=== PATIENT | female | born 1945 | race Caucasian/White ===

== ENCOUNTER 2016-08-16 15:36 | Inpatient (IN) | payer OTHER, MEDICARE ==
[~2016-08-16] VITALS: Ht 165.1 cm; Wt 57.8 kg
[~2016-08-16 15:36] MED LIST: LORT5TAB PO; METH500T3 OR; SALS500T PO
[2016-08-16 15:48] VITALS: BP 143/91; PULSE 91; RESP 28; O2SAT 89
--- NOTE | 2016-08-16 16:03 | PD ---
HPI Chief Complaint: Cold / Flu Symptoms Time Seen by Provider: 16:03 Travel History International Travel<30 days: Yes Contact w/Intl Traveler<30days: Yes Name of Country Traveled to: [place] Traveled to known affect area: No History of Present Illness HPI 71-year-old female with history of PE presents to the ED for evaluation of 3 week history of nonproductive cough, congestion, sinus pressure, body aches. She presents today due to increasing shortness of breath, failure of symptoms to resolve. She endorses pleuritic chest pain. She denies chest pain, palpitations, diaphoresis. Endorses decreased appetite and mild nausea. Denies vomiting, changes in bowel habits, dysuria, back pain, edema of the lower extremities. She states her symptoms began after driving from [place]. She states her had similar symptoms. She was seen at a [facility], prescribed a Medrol Dosepak and Levaquin. She states this has not improved her symptoms. She was seen again, given 2 injections which she believes were steroids and antibiotics, again without improvement. She endorses distant history of smoking. PFSH Past Medical History Anxiety: Yes Cardiovascular Problems: Yes Gastrointestinal Disorders: Yes (ULCERATIVE COLITIS) GERD: Yes Respiratory: Yes (PULONARY EMBOLI 06/14/10) Thyroid Disease: Yes Menopausal: Yes Tubal Ligation: Yes Social History Alcohol Use: Yes (2X MONTH) Tobacco Use: No Substance Use: No Allergies-Medications (Allergen,Severity, Reaction): Coded Allergies: No Known Allergies (Unverified , 08/16/16) Reported Meds & Prescriptions Reported Meds & Active Scripts Active Reported Zantac (Ranitidine HCl) 150 Mg Tab 150 Mg PO DAILY Proair Hfa 8.5 GM Inh (Albuterol Sulfate) 90 Mcg/Act Aer 1 Puff INH Q4H PRN 108 mcg/actuation Levaquin (Levofloxacin) 500 Mg Tab 500 Mg PO DAILY Metoprolol Tartrate 50 Mg Tab 50 Mg PO DAILY Review of Systems Except as stated in HPI: all other systems reviewed are Neg Physical Exam Narrative GENERAL: Well-nourished, well-developed thin white female on 2 L O2 by nasal cannula in no acute distress.. SKIN: Warm and dry. HEAD: Normocephalic. EYES: No scleral icterus. No injection or drainage. NECK: Supple, trachea midline. No JVD or lymphadenopathy. CARDIOVASCULAR: Regular rate and rhythm without murmurs, gallops, or rubs. 2+ DP and radial pulses bilaterally. RESPIRATORY: Diffuse, coarse wheezing in all lung saldaña. No accessory muscle use. GASTROINTESTINAL: Abdomen soft, non-tender, nondistended. MUSCULOSKELETAL: No cyanosis, or edema. Homans sign negative bilaterally. BACK: Nontender without obvious deformity. No CVA tenderness. Data Data Last Documented VS Vital Signs Date Time Temp Pulse Resp B/P Pulse Ox O2 Delivery O2 Flow Rate FiO2 08/16/16 17:40 99.6 91 146/77 97 Nasal Cannula 4 08/16/16 17:04 22 Orders Complete Blood Count With Diff (08/16/16 16:09) Comprehensive Metabolic Panel (08/16/16 16:09) Act Partial Throm Time (Ptt) (08/16/16 16:09) Prothrombin Time / Inr (Pt) (08/16/16 16:09) Magnesium (Mg) (08/16/16 16:09) Urinalysis - C+S If Indicated (08/16/16 16:09) Blood Culture (08/16/16 16:09) Iv Access Insert/Monitor (08/16/16 16:09) Electrocardiogram (08/16/16 16:09) Oximetry (08/16/16 16:09) Oxygen Administration (08/16/16 16:09) Chest, Single Ap (08/16/16 16:09) Sodium Chloride 0.9% Flush (Ns Flush) (08/16/16 16:15) Methylprednisolone So Succ Inj (Solumedr (08/16/16 16:15) Albuterol-Ipratropium Neb (Duoneb Neb) (08/16/16 16:15) Sodium Chlorid 0.9% 500 Ml Inj (Ns 500 M (08/16/16 16:15) Troponin I (08/16/16 16:47) Ckmb (Isoenzyme) Profile (08/16/16 16:47) D-Dimer (08/16/16 16:52) Ct Pulmonary Angiogram (08/16/16 17:33) Influenzae A/B Antigen (08/16/16 17:44) Iohexol 350 Inj (Omnipaque 350 Inj) (08/16/16 18:11) CKMB (08/16/16 16:30) CKMB% (08/16/16 16:30) Labs Laboratory Tests Test 08/16/16 08/16/16 16:21 16:30 Urine Color YELLOW Urine Turbidity CLEAR Urine pH 5.5 Urine Specific [place] 1.015 Urine Protein NEG mg/dL Urine Glucose (UA) NEG mg/dL Urine Ketones TRACE mg/dL Urine Occult Blood MOD Urine Nitrite NEG Urine Bilirubin NEG Urine Urobilinogen LESS THAN 2.0 MG/DL Urine Leukocyte Esterase NEG Urine RBC 3 /hpf Urine WBC 1 /hpf Urine Squamous Epithelial <1 /hpf Cells Microscopic Urinalysis Comment CULT NOT INDICATED White Blood Count 6.3 TH/MM3 Red Blood Count 4.77 MIL/MM3 Hemoglobin 15.2 GM/DL Hematocrit 44.8 % Mean Corpuscular Volume 93.9 FL Mean Corpuscular Hemoglobin 31.9 PG Mean Corpuscular Hemoglobin 34.0 % Concent Red Cell Distribution Width 14.7 % Platelet Count 242 TH/MM3 Mean Platelet Volume 8.2 FL Neutrophils (%) (Auto) 61.9 % Lymphocytes (%) (Auto) 22.5 % Monocytes (%) (Auto) 14.7 % Eosinophils (%) (Auto) 0.5 % Basophils (%) (Auto) 0.4 % Neutrophils # (Auto) 3.9 TH/MM3 Lymphocytes # (Auto) 1.4 TH/MM3 Monocytes # (Auto) 0.9 TH/MM3 Eosinophils # (Auto) 0.0 TH/MM3 Basophils # (Auto) 0.0 TH/MM3 CBC Comment DIFF FINAL Differential Comment Prothrombin Time 10.5 SEC Prothromb Time International 1.0 RATIO Ratio Activated Partial 27.5 SEC Thromboplast Time Sodium Level 135 MEQ/L Potassium Level 3.9 MEQ/L Chloride Level 100 MEQ/L Carbon Dioxide Level 29.5 MEQ/L Anion Gap 6 MEQ/L Blood Urea Nitrogen 15 MG/DL Creatinine 0.73 MG/DL Estimat Glomerular Filtration 78 ML/MIN Rate Random Glucose 81 MG/DL Calcium Level 8.7 MG/DL Magnesium Level 2.0 MG/DL Total Bilirubin 0.4 MG/DL Aspartate Amino Transf 22 U/L (AST/SGOT) Alanine Aminotransferase 22 U/L (ALT/SGPT) Alkaline Phosphatase 71 U/L Total Creatine Kinase 324 U/L Creatine Kinase MB 1.2 NG/ML Creatine Kinase MB % 0.4 % Troponin I LESS THAN 0.02 NG/ML Total Protein 7.0 GM/DL Albumin 3.6 GM/DL MDM Medical Decision Making Medical Screen Exam Complete: Yes Emergency Medical Condition: Yes Differential Diagnosis Pneumonia versus bronchitis versus PE versus ACS versus other Narrative Course 71-year-old female with history of PE presents to the ED for evaluation of 3 week history of nonproductive cough, congestion, sinus pressure, body aches. She presents today due to increasing shortness of breath, failure of symptoms to resolve. She endorses pleuritic chest pain, decreased appetite, mild nausea. She denies palpitations, diaphoresis, vomiting, changes in bowel habits , dysuria, back pain, edema of the lower extremities. Seen at [facility], prescribed Medrol Dosepak, Levaquin without improvement of symptoms. Seen at [facility] again, given 2 injections which she believes her steroids and antibiotics, again without improvement. Endorses distant history of PE, distant smoking history. Vitals reviewed. Patient's O2 sat 89, respiratory rate 26 on presentation. 2 L was applied by nasal cannula which improved her saturations. On my exam the patient is in no acute distress, no extra work of breathing, speaking in complete sentences. There are diffuse coarse breath sounds in bilateral lung saldaña and a rolling cough. Abdominal exam benign. No swelling in the bilateral extremities. IV was established. Patient was administered IV steroids, DuoNeb 3. Lab work, imaging, EKG, half liter fluid bolus ordered. The patient will be moved to the medical pods. Please see oncoming provider note for disposition. Allison Avila Aug 16, 2016 16:03
[2016-08-16] MEDS ORDERED: SODIUM CHLORID 0.9% 500 ML INJ 500 ML IV ONE (16:15)
[2016-08-16] MEDS ORDERED: methylPREDNISolone SOD SUCC 125 MG/2 ML VIAL IVP ONE ×2 (16:15→19:30)
[2016-08-16] MEDS ORDERED: SODIUM CHLORIDE 0.9% FLUSH 5 ML FLUSH IVF PRN (16:15)
[2016-08-16] MEDS: RESP: ALBUTEROL 2.5 MG/IPRATROPIUM 0.5 MG NEB (SCH) INH (16:44)
[2016-08-16 16:51] VITALS: O2SAT 91
[2016-08-16 17:04] VITALS: BP 120/59; PULSE 85; RESP 22; O2SAT 91
[2016-08-16 17:19] LABS: AUTOMATED NEUTROPHIL # 3.9 TH/MM3 (1.8-7.7); BASOPHIL % 0.4 % (0.0-2.0); EOSINOPHIL % 0.5 % (0.0-4.0); HEMATOCRIT 44.8 % (35.0-46.0); HEMO FLAGS DIFF FINAL; LYMPH % 22.5 % (9.0-44.0); LYMPHOCYTE # 1.4 TH/MM3 (1.0-4.8); MEAN CELL VOLUME 93.9 FL (80.0-100.0); MEAN CORPUSCULAR HEMOGLOBIN 31.9 PG (27.0-34.0); MONO % 14.7 % (0.0-8.0); NEUT % 61.9 % (16.0-70.0); PLATELET COUNT 242 TH/MM3 (150-450); RED BLOOD COUNT 4.77 MIL/MM3 (4.00-5.30); RED CELL DISTRIBUTION WIDTH 14.7 % (11.6-17.2); WHITE BLOOD COUNT 6.3 TH/MM3 (4.0-11.0)
[2016-08-16 17:20] LABS: BLOOD, URINE MOD (NEG); COMMENT (UR) CULT NOT INDICATED; CULTURE IF INDICATED CULT NOT INDICATED; GLUCOSE,URINE NEG (NEG); KETONE, URINE TRACE mg/dL (NEG); NITRITE,URINE NEG (NEG); PH, URINE 5.5 (5.0-8.5); SQUAMOUS EPITHELIAL CELL URINE <1 /hpf (0-5); URINE COLOR YELLOW (YELLW/STRAW)
[2016-08-16 17:28] LABS: APTT (PATIENT) 27.5 SEC (24.3-30.1); PROTHROMBIN TIME - PATIENT 10.5 SEC (9.8-11.6)
[2016-08-16] MEDS ORDERED: LEVA500T PO (17:35)
[2016-08-16] MEDS ORDERED: ALBUAER3 INH (17:35)
[2016-08-16] MEDS ORDERED: METO50TA PO (17:35)
[2016-08-16] MEDS ORDERED: ZANT150T2 PO (17:35)
[2016-08-16 17:39] LABS: ALT (GPT) 22 U/L (10-53); ANION GAP 6 MEQ/L (5-15); AST (GOT) 22 U/L (15-37); BICARBONATE 29.5 MEQ/L (21.0-32.0); BLOOD UREA NITROGEN 15 MG/DL (7-18); CHLORIDE 100 MEQ/L (98-107); GLOMERULAR FILTRATION RATE 78 ML/MIN (>89); POTASSIUM 3.9 MEQ/L (3.5-5.1); SODIUM (NA) 135 MEQ/L (136-145)
[2016-08-16 17:40] VITALS: BP 146/77; PULSE 91; TEMP 99.6; O2SAT 97
[2016-08-16 17:41] LABS: ALKALINE PHOSPHATASE 71 U/L (45-117); TOTAL BILIRUBIN ADULT 0.4 MG/DL (0.2-1.0)
--- NOTE | 2016-08-16 17:44 | PD ---
Physical Exam Time Seen by Provider: 17:25 Data Data Last Documented VS Vital Signs Date Time Temp Pulse Resp B/P Pulse Ox O2 Delivery O2 Flow Rate FiO2 08/16/16 17:40 99.6 91 146/77 97 Nasal Cannula 4 08/16/16 17:04 22 Orders Complete Blood Count With Diff (08/16/16 16:09) Comprehensive Metabolic Panel (08/16/16 16:09) Act Partial Throm Time (Ptt) (08/16/16 16:09) Prothrombin Time / Inr (Pt) (08/16/16 16:09) Magnesium (Mg) (08/16/16 16:09) Urinalysis - C+S If Indicated (08/16/16 16:09) Blood Culture (08/16/16 16:09) Iv Access Insert/Monitor (08/16/16 16:09) Electrocardiogram (08/16/16 16:09) Oximetry (08/16/16 16:09) Oxygen Administration (08/16/16 16:09) Chest, Single Ap (08/16/16 16:09) Sodium Chloride 0.9% Flush (Ns Flush) (08/16/16 16:15) Methylprednisolone So Succ Inj (Solumedr (08/16/16 16:15) Albuterol-Ipratropium Neb (Duoneb Neb) (08/16/16 16:15) Sodium Chlorid 0.9% 500 Ml Inj (Ns 500 M (08/16/16 16:15) Troponin I (08/16/16 16:47) Ckmb (Isoenzyme) Profile (08/16/16 16:47) D-Dimer (08/16/16 16:52) Ct Pulmonary Angiogram (08/16/16 17:33) Influenzae A/B Antigen (08/16/16 17:44) Iohexol 350 Inj (Omnipaque 350 Inj) (08/16/16 18:11) CKMB (08/16/16 16:30) CKMB% (08/16/16 16:30) Methylprednisolone So Succ Inj (Solumedr (08/16/16 19:30) Azithromycin Inj (Zithromax Inj) (08/16/16 19:30) Ceftriaxone Inj (Rocephin Inj) (08/16/16 19:30) Methylprednisolone So Succ Inj (Solumedr (08/17/16 00:00) Guaifenesin Er (Mucinex Er) (08/16/16 21:00) Budeson-Formot 160-4.5 Mg Inh (Symbicort (08/16/16 21:00) Admit To Inpatient (08/16/16 ) Vital Signs (Adult) Q4H (08/16/16 19:24) Activity Oob With Assistance (08/16/16 19:24) Industrial Conveyor Belt Repairer / Telemetry .CONTINUOUS (08/16/16 19:24) Diet Regular Basic (08/17/16 Breakfast) Sodium Chlor 0.9% 1000 Ml Inj (Ns 1000 M (08/16/16 19:30) Sodium Chloride 0.9% Flush (Ns Flush) (08/16/16 19:30) Sodium Chloride 0.9% Flush (Ns Flush) (08/16/16 21:00) Ondansetron Inj (Zofran Inj) (08/16/16 19:30) Bisacodyl Supp (Dulcolax Supp) (08/16/16 19:30) Comprehensive Metabolic Panel (08/17/16 06:00) Complete Blood Count With Diff (08/17/16 06:00) Scd Bilateral/Knee High IKE.BID (08/16/16 19:24) Nabil Bilateral/Knee High IKE.QSHIFT (08/16/16 19:24) Acetaminophen (Tylenol) (08/16/16 19:30) Acetamin-Hydrocod 325-5 Mg ([place] 5-325 (08/16/16 19:30) Acetamin-Hydrocod 325-10 Mg ([place] 10-32 (08/16/16 19:30) Inpatient Certification (08/16/16 ) Troponin I (08/17/16 00:00) Troponin I (08/17/16 06:00) Creatine Kinase (Cpk) (08/17/16 00:00) Creatine Kinase (Cpk) (08/17/16 06:00) Metoprolol Tartrate (Lopressor) (08/17/16 09:00) Admit Order (Ed Use Only) (08/16/16 19:30) Labs Laboratory Tests Test 08/16/16 08/16/16 16:21 16:30 Urine Color YELLOW Urine Turbidity CLEAR Urine pH 5.5 Urine Specific [place] 1.015 Urine Protein NEG mg/dL Urine Glucose (UA) NEG mg/dL Urine Ketones TRACE mg/dL Urine Occult Blood MOD Urine Nitrite NEG Urine Bilirubin NEG Urine Urobilinogen LESS THAN 2.0 MG/DL Urine Leukocyte Esterase NEG Urine RBC 3 /hpf Urine WBC 1 /hpf Urine Squamous Epithelial <1 /hpf Cells Microscopic Urinalysis Comment CULT NOT INDICATED White Blood Count 6.3 TH/MM3 Red Blood Count 4.77 MIL/MM3 Hemoglobin 15.2 GM/DL Hematocrit 44.8 % Mean Corpuscular Volume 93.9 FL Mean Corpuscular Hemoglobin 31.9 PG Mean Corpuscular Hemoglobin 34.0 % Concent Red Cell Distribution Width 14.7 % Platelet Count 242 TH/MM3 Mean Platelet Volume 8.2 FL Neutrophils (%) (Auto) 61.9 % Lymphocytes (%) (Auto) 22.5 % Monocytes (%) (Auto) 14.7 % Eosinophils (%) (Auto) 0.5 % Basophils (%) (Auto) 0.4 % Neutrophils # (Auto) 3.9 TH/MM3 Lymphocytes # (Auto) 1.4 TH/MM3 Monocytes # (Auto) 0.9 TH/MM3 Eosinophils # (Auto) 0.0 TH/MM3 Basophils # (Auto) 0.0 TH/MM3 CBC Comment DIFF FINAL Differential Comment Prothrombin Time 10.5 SEC Prothromb Time International 1.0 RATIO Ratio Activated Partial 27.5 SEC Thromboplast Time Sodium Level 135 MEQ/L Potassium Level 3.9 MEQ/L Chloride Level 100 MEQ/L Carbon Dioxide Level 29.5 MEQ/L Anion Gap 6 MEQ/L Blood Urea Nitrogen 15 MG/DL Creatinine 0.73 MG/DL Estimat Glomerular Filtration 78 ML/MIN Rate Random Glucose 81 MG/DL Calcium Level 8.7 MG/DL Magnesium Level 2.0 MG/DL Total Bilirubin 0.4 MG/DL Aspartate Amino Transf 22 U/L (AST/SGOT) Alanine Aminotransferase 22 U/L (ALT/SGPT) Alkaline Phosphatase 71 U/L Total Creatine Kinase 324 U/L Creatine Kinase MB 1.2 NG/ML Creatine Kinase MB % 0.4 % Troponin I LESS THAN 0.02 NG/ML Total Protein 7.0 GM/DL Albumin 3.6 GM/DL [facility] Medical Record Reviewed: Yes Supervised Visit with CHIKA: No Interpretation(s) CT pulmonary angiogram reveals no PE, hepatomegaly, right lung hazy opacity most likely inflammatory, right lower lobe nodule. Narrative Course Please see previous provider's notes for complete history of present illness. In summary this is a 71-year-old female who has had dyspnea, cough since approximately August 04. The cough is productive with clear sputum. She's been having some dyspnea, some sharp chest pain and upper back pain that is reproduced with coughing. She does note that symptoms started while she was on a cruise in the [facility] last week. She denies calf swelling or leg pain. She reports her temperature has been as high as 99.9. She was seen twice in urgent care center in the past week and prescribed Medrol Dosepak which she has completed as well as a ten-day course of Levaquin which she is on day 7 of. She is seen worsening of her symptoms which prompted evaluation. On examination she does have a dry cough, slight wheezing bilaterally. There is no lower extremity edema with a negative Homans. Her initial vital signs are recorded as a pulse oximetry of 89% on room air with a respiratory rate of 28, heart rate of 91. She does report a remote history of pulmonary embolism in 2004, unprovoked, for which she was on 1 year of Coumadin. Therefore CT pulmonary angiogram has been added on to the previous tests. In addition an influenza antigen test has been ordered. The patient's lab work and imaging studies have been reviewed and found to be reassuring. She does have a right lower lobe nodule which she is already aware of and is being monitored as an outpatient. She does have a right lung hazy opacity most likely inflammatory, no PE. Upon reexamination she does feel slightly better after the administration of DuoNeb's. Upon standing on room air the patient's pulse oximetry remained at 88%. Goes up to 92% while lying down on 4 L of oxygen. Therefore the patient will be admitted for evaluation. The patient will be given a dose of IV Solu-Medrol, Rocephin and azithromycin. The patient was discussed with Dr. Wolf who is agreeable. Diagnosis Primary Impression: Hypoxia Admitting Information Admitting Physician Requests: Admit Danny Lord Aug 16, 2016 17:43
--- NOTE | 2016-08-16 17:44 | RADRPT ---
EXAM DATE/TIME: 08/16/2016 16:36 [facility] COMPARISON: No previous studies available for comparison. INDICATIONS : Shortness of breath, congestion starting today MEDICAL HISTORY : None. SURGICAL HISTORY : None. ENCOUNTER: Initial ACUITY: 1 day PAIN SCORE: 0/10 LOCATION: Bilateral chest FINDINGS: Single AP view of the chest. The lungs are clear. Tortuous thoracic aorta. Cardiac silhouette within normal limits.. No evidence of pleural effusion or pneumothorax. CONCLUSION: No acute cardiopulmonary disease identified. Ketan Colby MD on August 16, 2016 at 17:41 Board Certified Radiologist. This report was verified electronically.
[2016-08-16] MEDS ORDERED: IOHEXOL 350 MG/ML 10 ML VIAL (for RAD DIAG) IV ONE (18:11)
[2016-08-16 18:35] LABS: CREATINE KINASE 324 U/L (26-192)
[2016-08-16 18:50] LABS: CKMB 1.2 NG/ML (0.5-3.6)
--- NOTE | 2016-08-16 18:51 | RADRPT ---
EXAM DATE/TIME: 08/16/2016 18:23 [facility] COMPARISON: No previous studies available for comparison. INDICATIONS : Chest pain and shortness of breath. IV CONTRAST: 75 cc Omnipaque 350 (iohexol) IV RADIATION DOSE: 22.68 CTDIvol (mGy) MEDICAL HISTORY : Cardiovascular disease. Pulmonary embolism. SURGICAL HISTORY : None. ENCOUNTER: Initial ACUITY: 1 day PAIN SCALE: 4/10 LOCATION: Bilateral chest TECHNIQUE: Volumetric scanning of the chest was performed using a pulmonary embolism protocol MIP images were re constructed. Using automated exposure control and adjustment of the mA and/or kV according to patien t size, radiation dose was kept as low as reasonably achievable to obtain optimal diagnostic quality images. FINDINGS: There is no evidence for PE for technique.The liver appears enlarged measuring 19.2 cm in oblique hafsa meter. There is no pleural effusion. There is a small 4-5 mm nodule in the right lower lobe laterall y. There is hazy opacity in the right upper lobe anteromedially parts of the right middle lobe most l ikely inflammatory. No appreciable pathological adenopathy is seen within the mediastinum. CONCLUSION: 1. There is no evidence for PE for technique. 2. Hepatomegaly. 3. Right lung hazy opacity most likely inflammatory. 4. Right lower lobe nodule, repeat noncontrast chest CT is suggested in 6 months as a conservative fo llow up. Lorna Moreno MD on August 16, 2016 at 18:46 Board Certified Radiologist. This report was verified electronically.
[2016-08-16] MEDS ORDERED: ACETAMINOPHEN/HYDROcodone 325 MG/5 MG TAB PO PRN (19:30)
[2016-08-16] MEDS ORDERED: SODIUM CHLORIDE 0.9% FLUSH 5 ML FLUSH FLUSH PRN (19:30)
[2016-08-16] MEDS ORDERED: BISACODYL 10 MG SUPP PR PRN (19:30)
[2016-08-16] MEDS ORDERED: ACETAMINOPHEN 325 MG TAB PO PRN (19:30)
[2016-08-16] MEDS ORDERED: SODIUM CHLOR 0.9% 1000 ML INJ 1,000 ML IV ONE (19:30)
[2016-08-16] MEDS ORDERED: ONDANSETRON HCL 4 MG/2 ML VIAL IVP PRN (19:30)
[2016-08-16] MEDS ORDERED: cefTRIAXone INJ 1,000 MG in SODIUM CHLORIDE 0.9% INJ 100 ML IV ONE (19:30)
[2016-08-16] MEDS ORDERED: AZITHROMYCIN INJ 500 MG in SODIUM CHLOR 0.9% 250 ML INJ 250 ML IV ONE (19:30)
--- NOTE | 2016-08-16 19:33 | HHI.HP ---
[facility] Service [facility] Primary Care Physician Valente Sweeney MD Admission Diagnosis Hypoxia Diagnoses: (1) SIRS (systemic inflammatory response syndrome) Diagnosis: Principal (2) Bronchitis Diagnosis: Principal (3) Hypoxia Diagnosis: Principal (4) Chest pain Diagnosis: Principal (5) HTN (hypertension) Diagnosis: Principal Travel History International Travel<30 Days: Yes Contact w/Intl Traveler <30 Da: Yes Name of Country Traveled to: [place] Traveled to Known Affected Are: No Sepsis Criteria SIRS Criteria (2 or more): Heart rate over 90, RR > 20 or PaCO2 < 32 History of Present Illness This is a 71-year-old female with a PMH of HTN, Ulcerative Colitis and h/o PE who came to the ER w/ complaints of chest pain, SOB and non-productive cough x3 wks. States symptoms started when she returned from a cruise to the [facility] on 08/08/16, states had similar symptoms, was treated w/ antibiotics and he improved, however she did not. Seen at Urgent Care 08/10/16 and prescribed Medrol Dosepak and Levaquin without significant improvement. Presented to Urgent Care a second time this past Friday and was given IM steroid/ antibiotic injections and instructed to continue w/ Levaquin. Came to ER today w/ ongoing symptoms. On arrival, BP 143/91, HR 91, O2 sat 89% on RA, RR 28, Temp 99.6. CBC unremarkable. Chemistry essentially unremarkable except for GFR 78. CPK 324. Troponin negative. UA negative. CXR with no acute findings. CTA Pulm w/ no PE, right lung opacity, likely inflammatory, RLL nodule w/ recommendation for repeat CT Chest in 6 months-pt aware of nodule, states PCP Dr. Sweeney is aware as well. On exam, pt noted to have wheezing. S/p Solu-Medrol and DuoNeb in ER w/ some improvement, however persistent hypoxia w/ ambulation, O2 sat 89%. Influenza negative. S/p Blood Cultures, Rocephin/Zithro in ER. Review of Systems Other ROS: 14 point review of systems otherwise negative. Past Family Social History Past Medical History PMH: HTN, Ulcerative Colitis and h/o PE Past Surgical History PAST SURGICAL HISTORY: Tubal Ligation Allergies: Coded Allergies: No Known Allergies (Unverified , 08/16/16) Family History PAST FAMILY HISTORY: Reviewed. No h/o DM or CAD Social History PAST SOCIAL HISTORY: Negative for alcohol, tobacco or drugs. Physical Exam Vital Signs Vital Signs Date Time Temp Pulse Resp B/P Pulse Ox O2 Delivery O2 Flow Rate FiO2 08/16/16 17:40 99.6 91 146/77 97 Nasal Cannula 4 08/16/16 17:04 85 22 120/59 91 Nasal Cannula 2 08/16/16 16:51 91 Nasal Cannula 2 08/16/16 16:51 91 Nasal Cannula 2 08/16/16 15:48 91 28 143/91 89 Physical Exam PE: GENERAL: Elderly female in no acute distress. HEENT: PERRLA, EOMI. No scleral icterus or conjunctival pallor. No lid lag or facial droop. CARDIOVASCULAR: Regular rate and rhythm. No obvious murmurs to auscultation. No chest tenderness to palpation. RESPIRATORY: No obvious rhonchi. Occasional wheezing. Clear to auscultation. Breath sounds equal bilaterally. GASTROINTESTINAL: Abdomen soft, non-tender, nondistended. BS normal. MUSCULOSKELETAL: Extremities without clubbing, cyanosis, or edema. No obvious deformities. NEUROLOGICAL: Awake, alert and oriented x4. No focal neurologic deficits. Moving both upper and lower extremities spontaneously. Laboratory Laboratory Tests Test 08/16/16 08/16/16 16:21 16:30 Urine Color YELLOW Urine Turbidity CLEAR Urine pH 5.5 Urine Specific [place] 1.015 Urine Protein NEG Urine Glucose (UA) NEG Urine Ketones TRACE Urine Occult Blood MOD Urine Nitrite NEG Urine Bilirubin NEG Urine Urobilinogen LESS THAN 2.0 Urine Leukocyte Esterase NEG Urine RBC 3 Urine WBC 1 Urine Squamous Epithelial <1 Cells Microscopic Urinalysis Comment CULT NOT INDICATED White Blood Count 6.3 Red Blood Count 4.77 Hemoglobin 15.2 Hematocrit 44.8 Mean Corpuscular Volume 93.9 Mean Corpuscular Hemoglobin 31.9 Mean Corpuscular Hemoglobin 34.0 Concent Red Cell Distribution Width 14.7 Platelet Count 242 Mean Platelet Volume 8.2 Neutrophils (%) (Auto) 61.9 Lymphocytes (%) (Auto) 22.5 Monocytes (%) (Auto) 14.7 Eosinophils (%) (Auto) 0.5 Basophils (%) (Auto) 0.4 Neutrophils # (Auto) 3.9 Lymphocytes # (Auto) 1.4 Monocytes # (Auto) 0.9 Eosinophils # (Auto) 0.0 Basophils # (Auto) 0.0 CBC Comment DIFF FINAL Differential Comment Prothrombin Time 10.5 Prothromb Time International 1.0 Ratio Activated Partial 27.5 Thromboplast Time Sodium Level 135 Potassium Level 3.9 Chloride Level 100 Carbon Dioxide Level 29.5 Anion Gap 6 Blood Urea Nitrogen 15 Creatinine 0.73 Estimat Glomerular Filtration 78 Rate Random Glucose 81 Calcium Level 8.7 Magnesium Level 2.0 Total Bilirubin 0.4 Aspartate Amino Transf 22 (AST/SGOT) Alanine Aminotransferase 22 (ALT/SGPT) Alkaline Phosphatase 71 Total Creatine Kinase 324 Creatine Kinase MB 1.2 Creatine Kinase MB % 0.4 Troponin I LESS THAN 0.02 Total Protein 7.0 Albumin 3.6 Date/Time Procedure Status Source Growth 08/16/16 17:51 Influenza Types A,B Antigen (LAUREN) - Final Complete Nasal Aspirate NEGATIVE FOR FLU A AND B ANTIGEN.... 08/16/16 16:29 Aerobic Blood Culture Received Blood Line Pending 08/16/16 16:29 Anaerobic Blood Culture Received Blood Line Pending Result Diagram: 08/16/16 1630 08/16/16 1630 Assessment and Plan Problem List: (1) SIRS (systemic inflammatory response syndrome) ICD Code: R65.10 Status: Acute (2) Bronchitis ICD Code: J40 Status: Acute (3) Hypoxia ICD Code: R09.02 Status: Acute (4) Chest pain ICD Code: R07.9 Status: Acute (5) HTN (hypertension) ICD Code: I10 Status: Acute Assessment and Plan A/P: 1. SIRS: Temp 99.6, HR 91, RR 22-28, Source-presumably PNA w/ failed outpatient therapy. Influenza negative, S/p Blood Cultures, IV Rocephin/ Zithro. Follow up cultures, continue IV Abx. 2. Bronchitis: CXR w/ no acute findings, CTA Pulm negative for PE, right lung hazy opacity likely inflammatory, RLL nodule w/ recommendation for repeat CT in 6 months, images reviewed by me. +wheezing on exam, s/p Solu-Medrol and DuoNeb w/ some improvement. Continue Solu-Medrol, DuoNeb, Symbicort, Mucinex. IV Abx as above for possible atypical PNA. Pulm consult if no improvement. 3. Hypoxia: O2 sat on arrival 89% on RA, s/p improvement after treatment w/ O2 sat 97% on 4L NC, however recurrent hypoxia w/ ambulation. Will monitor closely. Ambulating O2 once clinically improved. 4. Chest Pain: associated w/ cough. Unlikely cardiac, however will r/o ACS. Initial trop negative, EKG w/ no acute ischemia. Start ASA, Statin, resume home Metoprolol. 5. HTN: Controlled. BP 140's systolic, resume home Metoprolol. Monitor BP. 6. DVT Prophylaxis: SCD/Teds. 7. Social work for d/c planning as needed. 8. Case discussed w/ ER physician at length. Physician Certification 2 Midnight Certification Type: Admission for Inpatient Services Order for Inpatient Services The services are ordered in accordance with Medicare regulations or non- Medicare payer requirements, as applicable. In the case of services not specified as inpatient-only, they are appropriately provided as inpatient services in accordance with the 2-midnight benchmark. Estimated LOS (days): 2 days is the estimated time the patient will need to remain in the hospital, assuming treatment plan goals are met and no additional complications. Post-Hospital Plan: Not yet determined Mey Wolf MD Aug 16, 2016 19:33
[2016-08-16] MEDS ORDERED: RESP: ALBUTEROL 2.5 MG/IPRATROPIUM 0.5 MG NEB (PRN) NEB (20:00)
[2016-08-16] MEDS: SODIUM CHLORIDE 0.9% FLUSH 5 ML FLUSH FLUSH SCH (21:00)
[2016-08-16] MEDS: guaiFENesin E.R. 600 MG TAB PO SCH (23:12)
[2016-08-16] MEDS: BUDESONIDE-FORMOTEROL 160/4.5 MCG INHALER INH SCH (23:12)
[2016-08-17] VITALS (10 sets, daily range): BP systolic 152–181; BP diastolic 71–88; PULSE 69–87; RESP 16–20; TEMP 97.4–98.9; O2SAT 91–97
[2016-08-17 00:44] LABS: CREATINE KINASE 196 U/L (26-192)
[2016-08-17 00:56] LABS: CKMB 0.6 NG/ML (0.5-3.6)
[2016-08-17 05:41] LABS: AUTOMATED NEUTROPHIL # 3.2 TH/MM3 (1.8-7.7); BASOPHIL % 0.2 % (0.0-2.0); HEMATOCRIT 41.7 % (35.0-46.0); HEMO FLAGS DIFF FINAL; LYMPH % 10.4 % (9.0-44.0); LYMPHOCYTE # 0.4 TH/MM3 (1.0-4.8); MEAN CELL VOLUME 93.1 FL (80.0-100.0); MEAN CORPUSCULAR HEMOGLOBIN 31.4 PG (27.0-34.0); MEAN CORPUSCULAR HGB CONC 33.8 % (32.0-36.0); MONO % 2.8 % (0.0-8.0); NEUT % 86.6 % (16.0-70.0); PLATELET COUNT 235 TH/MM3 (150-450); RED BLOOD COUNT 4.48 MIL/MM3 (4.00-5.30); RED CELL DISTRIBUTION WIDTH 14.7 % (11.6-17.2); WHITE BLOOD COUNT 3.7 TH/MM3 (4.0-11.0)
[2016-08-17 06:15] LABS: ALKALINE PHOSPHATASE 62 U/L (45-117); ALT (GPT) 18 U/L (10-53); ANION GAP 5 MEQ/L (5-15); AST (GOT) 12 U/L (15-37); BICARBONATE 27.4 MEQ/L (21.0-32.0); BLOOD UREA NITROGEN 13 MG/DL (7-18); CHLORIDE 106 MEQ/L (98-107); CREATINE KINASE 155 U/L (26-192); GLOMERULAR FILTRATION RATE 90 ML/MIN (>89); POTASSIUM 4.6 MEQ/L (3.5-5.1); SODIUM (NA) 138 MEQ/L (136-145); TOTAL BILIRUBIN ADULT 0.2 MG/DL (0.2-1.0)
[2016-08-17] MEDS ORDERED: cloNIDine HCL 0.1 MG TAB PO PRN (07:30)
[2016-08-17] MEDS: guaiFENesin E.R. 600 MG TAB PO SCH ×2 (08:37→21:53)
[2016-08-17] MEDS: ASPIRIN EC 81 MG TABEC PO SCH (08:37)
[2016-08-17] MEDS: methylPREDNISolone SOD SUCC 40 MG/1 ML VIAL IV PUSH SCH ×4 (08:38→17:55)
[2016-08-17] MEDS: SODIUM CHLORIDE 0.9% FLUSH 5 ML FLUSH FLUSH SCH ×2 (08:38→21:00)
[2016-08-17] MEDS: PRAVASTATIN SOD 40 MG TAB PO SCH ×2 (08:38→08:51)
[2016-08-17] MEDS: BUDESONIDE-FORMOTEROL 160/4.5 MCG INHALER INH SCH ×2 (08:39→21:53)
[2016-08-17] MEDS ORDERED: METOPROLOL TARTRATE 50 MG TAB PO SCH (09:00)
[2016-08-17] MEDS: SODIUM CHLOR 0.9% 1000 ML INJ 1,000 ML IV SCH (11:00)
--- NOTE | 2016-08-17 11:05 | HHI.PR ---
Subjective Remarks Follow-up for pneumonia. The patient had shortness of breath, cough, and back pain. She had been on oral Levaquin and Medrol Dosepak as outpatient, with little improvement. She smoked in college, none since. She states her PCP did breathing test last year, denies any COPD. She does state that she was told that she has asthma. She says that she's been told she has a lung nodule before , and it is being observed. Objective Vitals Vital Signs Date Time Temp Pulse Resp B/P Pulse Ox O2 Delivery O2 Flow Rate FiO2 08/17/16 08:04 08/17/16 07:51 97.7 77 18 155/81 92 08/17/16 04:31 69 08/17/16 03:46 98.3 76 20 177/79 95 08/17/16 03:15 80 16 152/71 97 Nasal Cannula 4 08/16/16 17:40 99.6 91 146/77 97 Nasal Cannula 4 08/16/16 17:04 85 22 120/59 91 Nasal Cannula 2 08/16/16 16:51 91 Nasal Cannula 2 08/16/16 16:51 91 Nasal Cannula 2 08/16/16 15:48 91 28 143/91 89 I/O 08/16/16 08/16/16 08/16/16 08/17/16 08/17/16 08/17/16 07:00 15:00 23:00 07:00 15:00 23:00 Intake Total 100 ml Balance 100 ml Intake IV Total 100 ml # Voids 1 Result Diagram: 08/17/16 0522 08/17/[address] Angiography 08/16/16 1733 Signed Impressions: Service Date/Time: Tuesday, August 16, 2016 18:23 - CONCLUSION: 1. There is no evidence for PE for technique. 2. Hepatomegaly. 3. Right lung hazy opacity most likely inflammatory. 4. Right lower lobe nodule, repeat noncontrast chest CT is suggested in 6 months as a conservative follow up. Lorna Moreno MD Chest X-Ray 08/16/16 0970 Signed Impressions: Service Date/Time: Tuesday, August 16, 2016 16:36 - CONCLUSION: No acute cardiopulmonary disease identified. Ketan Colby MD Objective Remarks GENERAL: Well-developed well-nourished. In no acute distress. SKIN: Warm and dry. No lesions noted. HEENT: Normocephalic. Pupils equal and round. Mucous membranes pink and moist. CARDIOVASCULAR: Regular rate and rhythm. No murmur appreciated. RESPIRATORY: No accessory muscle use. Expiratory wheezing bilaterally. GASTROINTESTINAL: Abdomen soft, non-tender, nondistended. Bowel sounds x4. MUSCULOSKELETAL: No obvious deformities. No clubbing or cyanosis. No edema. NEUROLOGICAL: Awake and alert. No focal neurological deficits. Moves upper and lower extremities spontaneously. Normal speech. PSYCHIATRIC: Appropriate mood and affect; insight and judgment normal. A/P Problem List: (1) SIRS (systemic inflammatory response syndrome) ICD Code: R65.10 Status: Acute (2) Bronchitis ICD Code: J40 Status: Acute (3) Hypoxia ICD Code: R09.02 Status: Acute (4) Chest pain ICD Code: R07.9 Status: Acute (5) HTN (hypertension) ICD Code: I10 Status: Acute Assessment and Plan 71-year-old female with a PMH of HTN, Ulcerative Colitis and h/o PE who came to the ER w/ complaints of chest pain, SOB and non-productive cough x3 wks Sepsis: Temp 99.6, HR 91, RR 22-28, leukopenia 3.7. Source pneumonia as below. Influenza negative. Blood cultures with NGTD. Continue IV azithromycin and ceftriaxone. Check sputum culture and urinary antigens. Pneumonia and asthma exacerbation: Failed outpatient therapy. Pulmonary angiogram reviewed, negative for PE, however shows right lung hazy opacity likely inflammatory, RLL nodule(chronic per patient, continue outpatient monitoring). Presented with hypoxia and wheezing. Continue IV steroids. Scheduled and as needed nebs. Symbicort, Mucinex. Continue antibiotics as above. Chest Pain: Atypical, associated w/ cough. ACS ruled out per protocol with serial cardiac enzymes negative 3. Continue ASA, Statin, home Metoprolol. HTN: Reasonably Controlled. Continue home Metoprolol. Clonidine as needed. Monitor BP. DVT Prophylaxis: SCD/Teds. GI prophylaxis: Zantac Written by Rex Worthy, acting as scribe for Dr. Lazaro on 08/17/16 at 11:04. Discharge Planning Disposition pending clinical improvement. Attending Statement The documentation accurately reflects the work performed [id number] by me on at 11:04. Rex Worthy Aug 17, 2016 11:05 Edgar Rollins MD Aug 20, 2016 14:07
[2016-08-17] MEDS: FAMOTIDINE 20 MG TAB PO SCH ×2 (11:30→21:53)
[2016-08-17] MEDS: RESP: ALBUTEROL 2.5 MG/IPRATROPIUM 0.5 MG NEB (SCH) NEB ×2 (15:55→19:34)
[2016-08-17] MEDS: AZITHROMYCIN INJ 500 MG in SODIUM CHLOR 0.9% 250 ML INJ 250 ML IV SCH (20:29)
[2016-08-17] MEDS: METOPROLOL TARTRATE 50 MG TAB PO SCH (21:53)
[2016-08-17] MEDS: cefTRIAXone INJ 1,000 MG in SODIUM CHLORIDE 0.9% INJ 100 ML IV SCH (21:54)
[2016-08-17] MEDS: ACETAMINOPHEN/HYDROcodone 325 MG/10 MG TAB PO PRN (21:59)
[2016-08-18] VITALS (12 sets, daily range): BP systolic 143–191; BP diastolic 66–94; PULSE 50–81; RESP 17–20; TEMP 96.8–99.1; O2SAT 92–97
[2016-08-18] MEDS: SODIUM CHLOR 0.9% 1000 ML INJ 1,000 ML IV SCH ×2 (00:41→10:29)
[2016-08-18] MEDS: methylPREDNISolone SOD SUCC 40 MG/1 ML VIAL IV PUSH SCH ×4 (00:45→17:43)
[2016-08-18] MEDS: RESP: ALBUTEROL 2.5 MG/IPRATROPIUM 0.5 MG NEB (SCH) NEB ×3 (08:00→20:06)
[2016-08-18] MEDS: PRAVASTATIN SOD 40 MG TAB PO SCH (08:45)
[2016-08-18] MEDS: ASPIRIN EC 81 MG TABEC PO SCH (08:45)
[2016-08-18] MEDS: guaiFENesin E.R. 600 MG TAB PO SCH ×2 (08:45→21:00)
[2016-08-18] MEDS: FAMOTIDINE 20 MG TAB PO SCH ×2 (08:45→21:16)
[2016-08-18] MEDS: ACETAMINOPHEN/HYDROcodone 325 MG/10 MG TAB PO PRN (08:46)
[2016-08-18] MEDS: METOPROLOL TARTRATE 50 MG TAB PO SCH (08:46)
[2016-08-18] MEDS: SODIUM CHLORIDE 0.9% FLUSH 5 ML FLUSH FLUSH SCH ×2 (08:47→21:00)
[2016-08-18] MEDS: BUDESONIDE-FORMOTEROL 160/4.5 MCG INHALER INH SCH ×2 (08:48→21:18)
--- NOTE | 2016-08-18 13:03 | EKG ---
Date Performed: 08/16/2016 Time Performed: 16:39:04 PTAGE: 71 years EKG: Sinus rhythm POSSIBLE LEFT ATRIAL ENLARGEMENT MARKED LEFT AXIS DEVIATION LEFT BUNDLE BRANCH BLOCK When compared t o previous tracing, there is now evidence of a Left anterior fasicular block and left bundle branch b lock. ABNORMAL ECG PREVIOUS TRACING : 07/11/2010 08.59.22 DOCTOR: Francisco Wiseman Interpretating Date/Time 08/18/2016 13:01:58
[2016-08-18] MEDS ORDERED: amLODIPine BESYLATE 5 MG TAB PO SCH (13:45)
--- NOTE | 2016-08-18 14:24 | HHI.PR ---
Subjective Remarks Follow-up for pneumonia. The patient continues to have cough today, but it is improving. She has upper back pain between her shoulder blades whenever she coughs. 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 Objective Vitals Vital Signs Date Time Temp Pulse Resp B/P Pulse Ox O2 Delivery O2 Flow Rate FiO2 08/18/16 13:01 95 Room Air 08/18/16 13:01 50 159/81 95 08/18/16 12:40 97 21 08/18/16 12:00 96.8 55 18 159/81 95 08/18/16 11:11 Nasal Cannula 2.00 08/18/16 08:00 99.1 70 19 158/86 96 08/18/16 07:19 Nasal Cannula 2.00 08/18/16 06:30 98.1 61 17 149/82 92 08/18/16 04:42 148/73 08/18/16 04:10 98.0 70 20 191/94 95 08/18/16 00:18 97.6 68 20 164/70 95 08/17/16 20:00 85 08/17/16 19:35 95 Nasal Cannula 2.00 08/17/16 19:19 97.4 87 20 181/88 91 08/17/16 16:16 98.9 78 18 170/77 93 08/17/16 15:57 92 Nasal Cannula I/O 08/17/16 08/17/16 08/17/16 08/18/16 08/18/16 08/18/16 07:00 15:00 23:00 07:00 15:00 23:00 Intake Total 400 ml 1677 ml 55 ml Balance 400 ml 1677 ml 55 ml Intake IV Total 400 ml 1677 ml 55 ml # Voids 1 3 Result Diagram: 08/17/16 0508/17/[address] Angiography 08/16/16 1733 Signed Impressions: Service Date/Time: Tuesday, August 16, 2016 18:23 - CONCLUSION: 1. There is no evidence for PE for technique. 2. Hepatomegaly. 3. Right lung hazy opacity most likely inflammatory. 4. Right lower lobe nodule, repeat noncontrast chest CT is suggested in 6 months as a conservative follow up. Lorna Moreno MD Chest X-Ray 08/16/16 1609 Signed Impressions: Service Date/Time: Tuesday, August 16, 2016 16:36 - CONCLUSION: No acute cardiopulmonary disease identified. Ketan Colby MD Objective Remarks GENERAL: Well-developed well-nourished. In no acute distress. SKIN: Warm and dry. No lesions noted. HEENT: Normocephalic. Pupils equal and round. Mucous membranes pink and moist. CARDIOVASCULAR: Regular rate and rhythm. No murmur appreciated. RESPIRATORY: No accessory muscle use. Slightly improved expiratory wheezing bilaterally. GASTROINTESTINAL: Abdomen soft, non-tender, nondistended. Bowel sounds x4. MUSCULOSKELETAL: No obvious deformities. No clubbing or cyanosis. No edema. Mid back between the shoulder blades slightly tender to palpation. NEUROLOGICAL: Awake and alert. No focal neurological deficits. Moves upper and lower extremities spontaneously. Normal speech. PSYCHIATRIC: Appropriate mood and affect; insight and judgment normal. A/P Problem List: (1) SIRS (systemic inflammatory response syndrome) ICD Code: R65.10 Status: Acute (2) Bronchitis ICD Code: J40 Status: Acute (3) Hypoxia ICD Code: R09.02 Status: Acute (4) Chest pain ICD Code: R07.9 Status: Acute (5) HTN (hypertension) ICD Code: I10 Status: Acute Assessment and Plan 71-year-old female with a PMH of HTN, Ulcerative Colitis and h/o PE who came to the ER w/ complaints of chest pain, SOB and non-productive cough x3 wks Sepsis: Temp 99.6, HR 91, RR 22-28, leukopenia 3.7. Source pneumonia as below. Influenza negative. Blood cultures with NGTD. Urinary antigens negative. Continue IV azithromycin and ceftriaxone. Check sputum culture. Pneumonia and asthma exacerbation: Failed outpatient therapy. Pulmonary angiogram negative for PE, however shows right lung hazy opacity likely inflammatory, RLL nodule(chronic per patient, continue outpatient monitoring). Presented with hypoxia and wheezing. Continue IV steroids. Scheduled and as needed nebs. Symbicort, Mucinex, Tessalon. Continue antibiotics as above. Chest Pain: Atypical, associated w/ cough. ACS ruled out per protocol with serial cardiac enzymes negative 3. Continue ASA, Statin, home Metoprolol. HTN: Not well controlled. Attempted increasing home metoprolol, however patient was bradycardic overnight. Decrease metoprolol 25 mg daily to avoid bronchospasm with asthma as above as well as to prevent bradycardia. Start Cardura. Clonidine as needed. Monitor BP. DVT Prophylaxis: SCD/Teds. GI prophylaxis: Zantac Written by Rex Worthy, acting as scribe for Dr. Lazaro on 08/18/16 at 14:24. Discharge Planning Disposition pending continued clinical improvement. Attending Statement The documentation accurately reflects the work performed [id number] by tn on at 14:24. Rex Worthy Aug 18, 2016 14:24 Edgar Rollins MD Aug 27, 2016 13:25
[2016-08-18] MEDS ORDERED: BENZONATATE 100 MG CAP PO PRN (14:30)
[2016-08-18] MEDS: AZITHROMYCIN INJ 500 MG in SODIUM CHLOR 0.9% 250 ML INJ 250 ML IV SCH (20:17)
[2016-08-18] MEDS ORDERED: DOXAZOSIN MESYLATE 1 MG TAB PO SCH (21:00)
[2016-08-18] MEDS ORDERED: METOPROLOL TARTRATE 50 MG TAB PO SCH (21:00)
[2016-08-18] MEDS: cefTRIAXone INJ 1,000 MG in SODIUM CHLORIDE 0.9% INJ 100 ML IV SCH (21:16)
[2016-08-19] MEDS: SODIUM CHLOR 0.9% 1000 ML INJ 1,000 ML IV SCH ×2 (00:12→10:40)
[2016-08-19] MEDS: methylPREDNISolone SOD SUCC 40 MG/1 ML VIAL IV PUSH SCH ×3 (00:12→11:41)
[2016-08-19 00:30] VITALS: BP 130/70; PULSE 74; RESP 19; TEMP 97.1; O2SAT 94
[2016-08-19 04:35] VITALS: BP 143/71; PULSE 79; RESP 18; TEMP 97.8; O2SAT 95
[2016-08-19 08:00] VITALS: BP 183/87; PULSE 72; RESP 17; TEMP 98.2; O2SAT 93
[2016-08-19] MEDS: FAMOTIDINE 20 MG TAB PO SCH (08:33)
[2016-08-19] MEDS: guaiFENesin E.R. 600 MG TAB PO SCH (08:33)
[2016-08-19] MEDS: PRAVASTATIN SOD 40 MG TAB PO SCH (08:34)
[2016-08-19] MEDS: ASPIRIN EC 81 MG TABEC PO SCH (08:34)
[2016-08-19] MEDS: SODIUM CHLORIDE 0.9% FLUSH 5 ML FLUSH FLUSH SCH (08:39)
[2016-08-19] MEDS: BUDESONIDE-FORMOTEROL 160/4.5 MCG INHALER INH SCH (08:40)
[2016-08-19] MEDS ORDERED: SYMB160A INH (08:42)
[2016-08-19] MEDS ORDERED: IPRA17I INH (08:42)
[2016-08-19] MEDS ORDERED: CEFT500T3 PO (08:42)
[2016-08-19] MEDS ORDERED: CARD1TAB PO (08:42)
[2016-08-19] MEDS ORDERED: MUCI600T PO (08:42)
[2016-08-19] MEDS ORDERED: PRED10PA PO (08:42)
--- NOTE | 2016-08-19 08:42 | HHI.DS ---
Discharge Summary Admission Date Aug 16, 2016 at 19:32 Discharge Date: Aug 19, 2016 Admitting Diagnosis Hypoxia (1) SIRS (systemic inflammatory response syndrome) ICD Code: R65.10 Diagnosis: Principal (2) Bronchitis ICD Code: J40 Diagnosis: Principal (3) Hypoxia ICD Code: R09.02 Diagnosis: Principal (4) Chest pain ICD Code: R07.9 (5) HTN (hypertension) ICD Code: I10 Diagnosis: Secondary Procedures none Brief History - From Admission This is a 71-year-old female with a PMH of HTN, Ulcerative Colitis and h/o PE who came to the ER w/ complaints of chest pain, SOB and non-productive cough x3 wks. States symptoms started when she returned from a cruise to the [facility] on 08/08/16, states had similar symptoms, was treated w/ antibiotics and he improved, however she did not. Seen at Urgent Care 08/10/16 and prescribed Medrol Dosepak and Levaquin without significant improvement. Presented to Urgent Care a second time this past Friday and was given IM steroid/ antibiotic injections and instructed to continue w/ Levaquin. Came to ER today w/ ongoing symptoms. On arrival, BP 143/91, HR 91, O2 sat 89% on RA, RR 28, Temp 99.6. CBC unremarkable. Chemistry essentially unremarkable except for GFR 78. CPK 324. Troponin negative. UA negative. CXR with no acute findings. CTA Pulm w/ no PE, right lung opacity, likely inflammatory, RLL nodule w/ recommendation for repeat CT Chest in 6 months-pt aware of nodule, states PCP Dr. Sweeney is aware as well. On exam, pt noted to have wheezing. S/p Solu-Medrol and DuoNeb in ER w/ some improvement, however persistent hypoxia w/ ambulation, O2 sat 89%. Influenza negative. S/p Blood Cultures, Rocephin/Zithro in ER. CBC/BMP: 08/17/16 0522 08/17/16 0522 Significant Findings Laboratory Tests Test 08/16/16 08/16/16 08/17/1608/17/17 16:21 16:30 00:00 05:22 Urine Ketones TRACE mg/dL (NEG) Urine Occult Blood MOD (NEG) Monocytes (%) (Auto) 14.7 % (0.0-8.0) Sodium Level 135 MEQ/L (136-145) Estimat Glomerular Filtration 78 ML/MIN (>89) Rate Total Creatine Kinase 324 U/L 196 U/L (26-192) (26-192) Troponin I LESS THAN 0.02 LESS THAN 0.02 LESS THAN 0.02 NG/ML NG/ML NG/ML (0.02-0.05) (0.02-0.05) (0.02-0.05) White Blood Count 3.7 TH/MM3 (4.0-11.0) Neutrophils (%) (Auto) 86.6 % (16.0-70.0) Lymphocytes # (Auto) 0.4 TH/MM3 (1.0-4.8) Random Glucose 162 MG/DL (74-106) Aspartate Amino Transf 12 U/L (15-37) (AST/SGOT) Total Protein 6.2 GM/DL (6.4-8.2) Albumin 3.0 GM/DL (3.4-5.0) Imaging Last Impressions CT Angiography 08/16/16 1733 Signed Impressions: Service Date/Time: Tuesday, August 16, 2016 18:23 - CONCLUSION: 1. There is no evidence for PE for technique. 2. Hepatomegaly. 3. Right lung hazy opacity most likely inflammatory. 4. Right lower lobe nodule, repeat noncontrast chest CT is suggested in 6 months as a conservative follow up. Lorna Moreno MD Chest X-Ray 08/16/16 1609 Signed Impressions: Service Date/Time: Tuesday, August 16, 2016 16:36 - CONCLUSION: No acute cardiopulmonary disease identified. Ketan Colby MD PE at Discharge GENERAL: Well-developed well-nourished. In no acute distress. SKIN: Warm and dry. No lesions noted. HEENT: Normocephalic. Pupils equal and round. Mucous membranes pink and moist. CARDIOVASCULAR: Regular rate and rhythm. No murmur appreciated. RESPIRATORY: No accessory muscle use. Slightly improved expiratory wheezing bilaterally. GASTROINTESTINAL: Abdomen soft, non-tender, nondistended. Bowel sounds x4. MUSCULOSKELETAL: No obvious deformities. No clubbing or cyanosis. No edema. Mid back between the shoulder blades slightly tender to palpation. NEUROLOGICAL: Awake and alert. No focal neurological deficits. Moves upper and lower extremities spontaneously. Normal speech. PSYCHIATRIC: Appropriate mood and affect; insight and judgment normal. Pt update on day of discharge Feels much better. No sob, wheezing, fever or chills. No pain . Wants to go home. Hospital Course 71-year-old female with a PMH of HTN, Ulcerative Colitis and h/o PE who came to the ER w/ complaints of chest pain, SOB and non-productive cough x3 wks Sepsis: Temp 99.6, HR 91, RR 22-28, leukopenia 3.7. Source pneumonia as below. Influenza negative. Blood cultures with NGTD. Urinary antigens negative. Continue IV azithromycin and ceftriaxone. Check sputum culture. Pneumonia and asthma exacerbation: Failed outpatient therapy. Pulmonary angiogram negative for PE, however shows right lung hazy opacity likely inflammatory, RLL nodule(chronic per patient, continue outpatient monitoring). Presented with hypoxia and wheezing. Continue IV steroids. Scheduled and as needed nebs. Symbicort, Mucinex, Tessalon. Continue antibiotics as above. Chest Pain: Atypical, associated w/ cough. ACS ruled out per protocol with serial cardiac enzymes negative 3. Continue ASA, Statin, home Metoprolol. HTN: Not well controlled. Attempted increasing home metoprolol, however patient was bradycardic overnight. Decrease metoprolol 25 mg daily to avoid bronchospasm with asthma as above as well as to prevent bradycardia. Start Cardura. Clonidine as needed. Monitor BP. DVT Prophylaxis: SCD/Teds. GI prophylaxis: Zantac Improved, discharged in fairly good condition to follow up as OP with PCP and consultants. Pt Condition on Discharge: Fair Discharge Disposition: Disch w/ Home Health Serv Discharge Time: > 30 minutes Discharge Instructions DIET: Follow Instructions for: As Tolerated, No Restrictions Activities you can perform: Regular-No Restrictions Follow up Referrals: PCP Follow-up - 3-5 Days Pulmonology - 1 Week New Medications: Cefuroxime (Ceftin) 500 Mg Tab 500 MG PO BID Infection #14 Ref 0 TAB Ipratropium HFA 12.9 GM Inh (Atrovent HFA 12.9 GM Inh) 17 Mcg/Act Aer 2 PUFF INH TID Shortness of Breath #1 Ref 0 INHALER Prednisone (21) 10 mg tab Dose Pack (Prednisone (21) 10 mg tab Dose Pack) 10 Mg Pack 10 MG PO DIRECTED Inflammation #1 Ref 0 DSPK Budesonide-Formoterol Inh (Symbicort Inh) 160-4.5 Mcg/Act Aero 2 PUFF INH Q12HR Shortness of Breath #30 INHALER Doxazosin (Cardura) 1 Mg Tab 1 MG PO HS Blood Pressure Management #30 TAB Guaifenesin ER 12 HR (Mucinex ER 12 HR) 600 Mg Maxwell 600 MG PO BID cough #6 TAB Continued Medications: Albuterol 8.5 GM Inh (Proair Hfa 8.5 GM Inh) 90 Mcg/Act Aer 1 PUFF INH Q4H 108 mcg/actuation PRN SHORTNESS OF BREATH #1 Ref 0 INHALER Metoprolol Tartrate (Metoprolol Tartrate) 50 Mg Tab 50 MG PO DAILY #30 Ref 0 TAB Ranitidine (Zantac) 150 Mg Tab 150 MG PO DAILY Reduce Stomach Acid #30 Ref 0 TAB Discontinued Medications: Levofloxacin (Levaquin) 500 Mg Tab 500 MG PO DAILY Infection Ref 0 TAB Christina Kong MD Aug 19, 2016 08:42
[2016-08-19] MEDS ORDERED: METOPROLOL TARTRATE 50 MG TAB PO SCH (09:00)
[2016-08-19] MEDS: RESP: ALBUTEROL 2.5 MG/IPRATROPIUM 0.5 MG NEB (SCH) NEB (10:05)
[2016-08-19 12:00] VITALS: BP 160/80; PULSE 72; RESP 17; TEMP 96.3; O2SAT 94
--- NOTE | 2016-08-19 12:18 | HHI.FF ---
Face to Face Verification Diagnosis: (1) Hypoxia (2) Bronchitis (3) Chest pain (4) HTN (hypertension) (5) Abnormal CT scan of lung (6) SIRS (systemic inflammatory response syndrome) Home Health Nursing Order: Medical education Signs/symptoms of disease process Medication education-adverse effect Nursing assessment with vital signs I have seen patient Ana Mosley on 08/19/16. My clinical findings support the need for the requested home health care services because: Ltd mobility - disease progression Patient has SOB I certify that my clinical findings support that this patient is homebound because: Post-op weakness Hx COPD- exertion dyspnea/weakness Christina Kong MD Aug 19, 2016 12:18
== END 2016-08-19 14:28 | disposition home health service (06) | DRG 871 ==
LOC: NEPE 15:36 → NEDA 19:32 → NEPHCDU 08-17 03:48 → N06B 08-18 06:20
PROVIDERS: ADMIT Hospitalist; ATTEND Hospitalist
DX: A41.9 Sepsis, unspecified organism (principal); J18.9 Pneumonia, unspecified organism; K51.90 Ulcerative colitis, unspecified, without complications; R00.1 Bradycardia, unspecified; J45.901 Unspecified asthma with (acute) exacerbation; K21.9 Gastro-esophageal reflux disease without esophagitis; I10 Essential (primary) hypertension; R09.02 Hypoxemia; D72.819 Decreased white blood cell count, unspecified; Z86.711 Personal history of pulmonary embolism; I20.9 Angina pectoris, unspecified; Z87.891 Personal history of nicotine dependence
CPT/HCPCS: 71010; 71275; 80053; 81001; 82550; 82552; 83735; 84484; 85025; 85379; 85610; 85730; 87040; 87449; 87804; 93005; 94640; 94664; J0456; J0696; J2920; J2930; J7030; J7040; J7050; Q9967